=== PATIENT | female | born 1990 | race Two or more races ===

== ENCOUNTER → 2024-07-15 | Outpatient (CLI) | payer MEDICAID, SELFPAY ==
--- NOTE | 2024-07-15 15:30 | XR_ITS ---
Examination: Thyroid sonography complete TECHNIQUE: Grayscale sonographic images thyroid lobes with color flow analysis Exam date and time: July 15, 2024 1545 hours INDICATIONS: Fatigue neck swelling beginning something stuck in the throat beginning one month ago. FINDINGS: Right thyroid 4.5 cm no nodules Left thyroid 3.7 cm no nodules IMPRESSION: Negative examination
== END | disposition home or self-care (01) ==
PROVIDERS: PCP Physician Assistant; Referring Provider Physician Assistant Medical; Visit Provider Physician Assistant Medical
DX: R94.6 Abnormal results of thyroid function studies (principal)
CPT/HCPCS: 76536